=== PATIENT | female | born 1935 | race Caucasian/White ===

== ENCOUNTER 2018-06-10 17:03 | Inpatient (IN) | payer MEDICARE, MEDICAID ==
[~2018-06-10] VITALS: Ht 162.6 cm; Wt 68.0 kg
--- NOTE | 2018-06-10 17:15 | NUR ---
BIB [facility] FROM HOME, SYNCOPAL EPISODE,BLOOD IN HER DIAPER NOTED BY CAREGIVER. NOTED PALEM HYPOSTENSIVE. MD AT BS FOR EVAL- ASSISTED TO CHECK NOTED POSITIVE OCCULT BLOOD. FAMILY MEMBER AT BS. SAFETY AND COMFORT MEASURES PROVIDED. WILL MONITOR,.
[2018-06-10 17:28] LABS: BASOPHILS # (AUTO) 0.1 /CMM (0.0-0.2); BASOPHILS % (AUTO) 0.7 % (0.0-2.0); EOSINOPHILS % (AUTO) 0.7 % (0.0-6.0); HEMATOCRIT 30 % (33-45); HEMOGLOBIN 9.6 g/dL (11.5-14.8); LYMPHOCYTES # (AUTO) 2.5 /CMM (0.8-4.8); LYMPHOCYTES % (AUTO) 20.2 % (20.0-44.0); MEAN CORPUSCULAR HEMOGLOBIN 27 PG (26.0-33.0); MEAN CORPUSCULAR HGB CONC 32 g/dl (31.0-36.0); MEAN CORPUSCULAR VOLUME 84 fL (82-100); MONOCYTES # (AUTO) 0.6 /CMM (0.1-1.30); MONOCYTES % (AUTO) 4.7 % (2.0-12.0); NEUTROPHILS # (AUTO) 9.3 /CMM (1.8-8.9); NEUTROPHILS % (AUTO) 73.7 % (43.0-81.0); PLATELET COUNT (AUTO) 323 /CMM (150-450); RDW COEFFICIENT OF VARIATION 16.2 (11.5-15.0); RED BLOOD CELL COUNT(AUTO) 3.57 MIL/uL (4.0-5.2); WHITE BLOOD COUNT (AUTO) 12.6 K/uL (4.3-11.0)
[2018-06-10] MEDS ORDERED: IV NS 0.9% 1,000 ML BAG IV ONE (17:30)
--- NOTE | 2018-06-10 17:37 | NUR ---
IV ACCESS STARTED. BLOOD DRAWN FOR LABS. MEDICATED ORDERED. XRAY AT BS.
[2018-06-10 17:38] LABS: CALCIUM, SERUM 8.7 mg/dL (8.5-10.1); CARBON DIOXIDE 27 mmol/L (21-32); CHLORIDE 106 mmol/L (98-107); CREATININE 0.6 mg/dL (0.6-1.3); GLUCOSE 130 mg/dL (74-106); POTASSIUM 3.1 mmol/L (3.5-5.1); SODIUM SERUM 140 mmol/L (136-145); UREA NITROGEN, BLOOD 20 mg/dL (7-18)
[2018-06-10 17:42] LABS: INR 1.01 (0.85-1.15)
[2018-06-10 17:44] LABS: ALANINE AMINOTRANSFERASE 12 U/L (12-78); ALBUMIN 2.7 g/dL (3.4-5.0); ALKALINE PHOSPHATASE 112 U/L (46-116); ASPARTATE AMINOTRANSFERASE 11 U/L (15-37); BILIRUBIN,DIRECT 0.1 mg/dL (0.0-0.2); BILIRUBIN,TOTAL 0.4 mg/dL (0.2-1.0); LIPASE 54 U/L (73-393); TOTAL PROTEIN, SERUM 6.4 g/dL (6.4-8.2)
--- NOTE | 2018-06-10 17:45 | NUR ---
BANDAR NURSING BAND ATTACHER AND REQUESTED AN ICU BED FOR THIS PT.
[2018-06-10 17:46] LABS: TROPONIN I < 0.017 ng/mL (0.00-0.056)
--- NOTE | 2018-06-10 17:53 | NUR ---
PT'S SON TO SIGN THE CONSENT FOR BLOOD TRANSFUSION. VERBALIZED UNDERSTANDING OF THE PROCEDURE. ALL QUESTIONS ANSWERED.
[2018-06-10] MEDS ORDERED: LEVE100S PO (18:48)
[2018-06-10] MEDS ORDERED: ESCI10TA PO (18:48)
[2018-06-10] MEDS ORDERED: ESOM40CA PO (18:48)
[2018-06-10] MEDS ORDERED: TEMA7.5C PO (18:48)
[2018-06-10] MEDS ORDERED: LIPA1CAP15 PO (18:48)
[2018-06-10] MEDS ORDERED: DONE23TA3 PO (18:48)
[2018-06-10] MEDS ORDERED: LACT10SO PO (18:48)
[2018-06-10] MEDS ORDERED: LISI2.5T2 PO (18:48)
[2018-06-10] MEDS ORDERED: MECL-102 PO (18:48)
[2018-06-10] MEDS ORDERED: METO25TA6 PO (18:48)
[2018-06-10] MEDS ORDERED: ROSU5TAB12 PO (18:48)
--- NOTE | 2018-06-10 18:48 | NUR ---
CALLED [facility] FOR PANEL CALL AND DR SUH WAS PAGED.
[2018-06-10] MEDS ORDERED: APIX2.5T PO (18:49)
--- NOTE | 2018-06-10 18:59 | NUR ---
PT IS ASSIGNED TO ICU RM#: [id number], DX: RECTAL BLEED, AND ACCEPTING MD: DR SUH.
--- NOTE | 2018-06-10 18:59 | NUR ---
PAGED GI BOTTLING MACHINE OPERATOR CHIP CLEANING NP
[2018-06-10] MEDS ORDERED: MAGNESIUM HYDROXIDE 30 ML UDC PO PRN (19:00)
[2018-06-10] MEDS ORDERED: Z GUARD REMEDY 2 OZ OINT TP PRN (19:00)
[2018-06-10] MEDS ORDERED: ZOLPIDEM TARTRATE 5 MG TABLET PO PRN (19:00)
[2018-06-10] MEDS ORDERED: MAG HYDROX/AL HYDROX/SIMETH 30 ML UDC PO PRN (19:00)
--- NOTE | 2018-06-10 19:24 | NUR ---
REPORT GIVEN TO SY LUIS FOR DENIS.
--- NOTE | 2018-06-10 19:44 | NUR ---
CALLED [facility] [employer] AND REQUESTED A TELE BED FOR THIS PT.
[2018-06-10 20:00] VITALS: BP 116/68
[2018-06-10] MEDS ORDERED: POTASSIUM CHLORIDE 20 MEQ TAB.PRT.SR PO ONE (20:00)
--- NOTE | 2018-06-10 20:02 | NUR ---
NEW ROOM 118-1, DAPHNIE LUIS
--- NOTE | 2018-06-10 20:11 | NUR ---
REPORT GIVEN TO [place]
[2018-06-10 20:30] VITALS: BP 116/68
[2018-06-10] MEDS ORDERED: MECLIZINE HCL 25 MG TABLET PO PRN (21:00)
[2018-06-10] MEDS ORDERED: NA PHOS,M-B/NA PHOS,DI-BA 1 EA ENEMA RC PRN (21:30)
--- NOTE | 2018-06-10 21:49 | NUR ---
rn notes seen by Cristy Farias NP. with instrction not to start Golytly, mag citrate and Enema till AM.
[2018-06-10] MEDS: PANTOPRAZOLE 40 MG VIAL IV SCH (21:57)
[2018-06-10] MEDS: IV NS 0.9% 1,000 ML IV PRN (22:41)
[2018-06-10] MEDS ORDERED: PEG 3350/NA SULF,BICARB,CL/KCL 4,000 ML BOTTLE PO ONE (23:30)
[2018-06-11] VITALS: BP 118/60
[2018-06-11] MEDS ORDERED: MAGNESIUM CITRATE 296 ML BOTTLE PO ONE
[2018-06-11 00:19] LABS: IRON, SERUM 12 ug/dl (50-175); TOTAL IRON BINDING CAPACITY 180 ug/dl (250-450)
[2018-06-11 00:35] LABS: FERRITIN 47 ng/mL (8-388)
[2018-06-11 04:00] VITALS: BP 122/59
[2018-06-11 06:46] LABS: ALANINE AMINOTRANSFERASE 9 U/L (12-78); ALBUMIN 2.3 g/dL (3.4-5.0); ALKALINE PHOSPHATASE 88 U/L (46-116); ASPARTATE AMINOTRANSFERASE 13 U/L (15-37); BILIRUBIN,TOTAL 0.3 mg/dL (0.2-1.0); CALCIUM, SERUM 8.4 mg/dL (8.5-10.1); CARBON DIOXIDE 25 mmol/L (21-32); CHLORIDE 110 mmol/L (98-107); CREATININE 0.5 mg/dL (0.6-1.3); GLUCOSE 102 mg/dL (74-106); SODIUM SERUM 143 mmol/L (136-145); TOTAL PROTEIN, SERUM 5.6 g/dL (6.4-8.2); UREA NITROGEN, BLOOD 21 mg/dL (7-18)
[2018-06-11 07:00] LABS: BASOPHILS % (AUTO) 0.4 % (0.0-2.0); EOSINOPHILS % (AUTO) 0.8 % (0.0-6.0); HEMATOCRIT 25 % (33-45); HEMOGLOBIN 7.5 g/dL (11.5-14.8); LYMPHOCYTES # (AUTO) 1.6 /CMM (0.8-4.8); LYMPHOCYTES % (AUTO) 22.2 % (20.0-44.0); MEAN CORPUSCULAR HEMOGLOBIN 26 PG (26.0-33.0); MEAN CORPUSCULAR HGB CONC 30 g/dl (31.0-36.0); MEAN CORPUSCULAR VOLUME 87 fL (82-100); MONOCYTES # (AUTO) 0.4 /CMM (0.1-1.30); MONOCYTES % (AUTO) 5.1 % (2.0-12.0); NEUTROPHILS # (AUTO) 5.2 /CMM (1.8-8.9); NEUTROPHILS % (AUTO) 71.5 % (43.0-81.0); PLATELET COUNT (AUTO) 248 /CMM (150-450); RED BLOOD CELL COUNT(AUTO) 2.85 MIL/uL (4.0-5.2); WHITE BLOOD COUNT (AUTO) 7.2 K/uL (4.3-11.0)
--- NOTE | 2018-06-11 07:30 | NUR ---
RECEIVED PT. THIS AM ALERT AND ORIENTED X3,WEAK,COOPERATIVE,VS STABLE.IV INFUSING.
[2018-06-11 07:39] LABS: CHOLESTEROL 78 mg/dL (<200); HDL CHOLESTEROL 33 mg/dL (40-60); LDL 41 mg/dL (0-99); TRIGLYCERIDES 64 mg/dL (30-150)
[2018-06-11 08:00] VITALS: BP 146/66
[2018-06-11] MEDS ORDERED: Medication Not On Formulary EA (Lipase/Protease/Amylase (Creon Dr 36,000 Units Capsule) PO SCH (08:00)
[2018-06-11] MEDS: PANTOPRAZOLE 40 MG VIAL IV SCH (09:48)
[2018-06-11] MEDS: LISINOPRIL (5MG) 5 MG TABLET PO SCH (09:49)
[2018-06-11] MEDS: ESCITALOPRAM OXALATE (10 MG) 10 MG TABLET PO SCH (09:49)
[2018-06-11] MEDS: METOPROLOL TARTRATE 25 MG TABLET PO SCH (09:49)
--- NOTE | 2018-06-11 10:00 | NUR ---
[facility] GRANDSON IN TO VISIT,HANNAH MORA.CONSENT SIGNED FOR NM GI SCAN OVER PHONE WITH SON.
[2018-06-11] MEDS: LIPASE/PROTEASE/AMYLASE 1 EACH CAPSULE.DR PO SCH ×3 (10:18→18:29)
[2018-06-11] MEDS: IV NS 0.9% 1,000 ML IV PRN (10:40)
[2018-06-11] MEDS ORDERED: HEPARIN-LOCK FLUSH PORCINE PF 100 UNITS/1 ML (10 ML)DISP.SYRIN IV ONE (11:46)
[2018-06-11 12:00] VITALS: BP 159/78
--- NOTE | 2018-06-11 12:30 | NUR ---
PROGRESS OF GO-LYTELY ADM. STOPPED PT. OFF FLOOR.
--- NOTE | 2018-06-11 13:00 | NUR ---
COLONOSCOPY CONSENT SIGNED.
[2018-06-11] MEDS: SOD FERRIC GLUC 125 MG in IV NS 0.9% 100 ML IV SCH (14:42)
[2018-06-11 16:00] VITALS: BP 154/69
[2018-06-11] MEDS: ONDANSETRON HCL/PF 4 MG/2 ML VIAL IVP PRN ×2 (16:47→23:02)
--- NOTE | 2018-06-11 16:47 | NUR ---
MED. FOR NAUSEA GO-LYTELY IN PROGRESS.PT. OFF FLOOR FROM 1115 TO 1445 FOR GI SCAN.
--- NOTE | 2018-06-11 18:00 | NUR ---
HAD SEVERAL STOOLS DARK BROWN IN COLOR.NO ACTIVE BLEEDING NOTED.
[2018-06-11 20:00] VITALS: BP 156/84
[2018-06-11] MEDS: ATORVASTATIN 10 MG TABLET PO SCH (22:06)
[2018-06-11] MEDS: ACETAMINOPHEN 325 MG TABLET PO PRN (23:01)
[2018-06-12] VITALS (9 sets, daily range): BP systolic 114–180; BP diastolic 68–95
[2018-06-12] MEDS: IV NS 0.9% 1,000 ML IV PRN (03:33)
--- NOTE | 2018-06-12 06:28 | NUR ---
RN NOTE PATIENT REMAINED NPO AFTER MIDNIGHT, WAS ABLE TO COMPLETE GOLYTELY PRIOR TO 0000, CLEAR BM, NO PAIN OR DISCOMFORT NOTED, TURNED AND REPOSITION Q 2 HOURS, ALL SAFETY MEASURES TAKEN, WILL ENDORSE TO AM SHIFT TO CONTINUE CARE
[2018-06-12 06:58] LABS: BASOPHILS # (AUTO) 0.1 /CMM (0.0-0.2); BASOPHILS % (AUTO) 0.8 % (0.0-2.0); EOSINOPHILS % (AUTO) 0.5 % (0.0-6.0); HEMATOCRIT 25 % (33-45); HEMOGLOBIN 7.7 g/dL (11.5-14.8); LYMPHOCYTES # (AUTO) 1.7 /CMM (0.8-4.8); LYMPHOCYTES % (AUTO) 21.8 % (20.0-44.0); MEAN CORPUSCULAR HEMOGLOBIN 27 PG (26.0-33.0); MEAN CORPUSCULAR HGB CONC 31 g/dl (31.0-36.0); MEAN CORPUSCULAR VOLUME 87 fL (82-100); MONOCYTES # (AUTO) 0.4 /CMM (0.1-1.30); MONOCYTES % (AUTO) 5.1 % (2.0-12.0); NEUTROPHILS # (AUTO) 5.7 /CMM (1.8-8.9); NEUTROPHILS % (AUTO) 71.8 % (43.0-81.0); PLATELET COUNT (AUTO) 256 /CMM (150-450); RDW COEFFICIENT OF VARIATION 17.8 (11.5-15.0); RED BLOOD CELL COUNT(AUTO) 2.84 MIL/uL (4.0-5.2); WHITE BLOOD COUNT (AUTO) 7.9 K/uL (4.3-11.0)
[2018-06-12 07:03] LABS: ALANINE AMINOTRANSFERASE 8 U/L (12-78); ALBUMIN 2.5 g/dL (3.4-5.0); ALKALINE PHOSPHATASE 100 U/L (46-116); ASPARTATE AMINOTRANSFERASE 16 U/L (15-37); BILIRUBIN,TOTAL 0.3 mg/dL (0.2-1.0); CARBON DIOXIDE 26 mmol/L (21-32); CHLORIDE 108 mmol/L (98-107); CREATININE 0.4 mg/dL (0.6-1.3); GLUCOSE 79 mg/dL (74-106); POTASSIUM 3.4 mmol/L (3.5-5.1); SODIUM SERUM 142 mmol/L (136-145); UREA NITROGEN, BLOOD 12 mg/dL (7-18)
--- NOTE | 2018-06-12 07:35 | NUR ---
RN NOTE RECEIVED PATIENT AWAKE ALERT AND ORIENTED X2-3, SHE IS ABLE TO MAKE THINGS KNOWN IN HER [place] LANGUAGE. BREATHING EVEN AND UNLABORED WITH NO DISTRESS NOTED. PATIENT REMAINS NPO SECONDARY TO COLONOSCOPY PROCEDURE TODAY. CONSENT AND CHECKLIST DONE. ALL SAFETY MEASURES DONE. BED LOW AND LOCKED POSITION. WILL CONTINUE TO MONITOR.
[2018-06-12] MEDS: LIPASE/PROTEASE/AMYLASE 1 EACH CAPSULE.DR PO SCH ×3 (08:00→17:14)
[2018-06-12] MEDS: PANTOPRAZOLE 40 MG VIAL IV SCH (08:31)
[2018-06-12] MEDS: ESCITALOPRAM OXALATE (10 MG) 10 MG TABLET PO SCH (08:31)
--- NOTE | 2018-06-12 08:45 | NUR ---
OPERATOR COATING FURNACE NOTES PATIENT RECEIVED RESTING INSIDE ROOM. AWAKE, ALERT AND ORIENTED, VERBALLY RESPONSIVE AND RESPONDS TO VERBAL AND TACTILE STIMULI. BREATHING EVEN AND UNLABORED. NO SOB OR ACUTE DISTRESS NOTED. NO CHANGES IN LOC NOTED AT THIS TIME. PATIENT CALM AND RELAXED. PATIENT FOR COLONOSCOPY AT NOON. NPO POST MIDNIGHT. PATIENT AWARE OF PROCEDURE. IV INTACT AND PATENT. NO BLEEDING NOTED ON SITE. WILL CONTINUE TO MONITOR. BED LOCKED AND IN LOW POSITION. BILATERAL UPPER SIDE RAILS UP AND LOCKED. CALL LIGHT WITHIN EASY REACH
--- NOTE | 2018-06-12 08:45 | NUR ---
RN NOTE ENDORSED REPORT TO HONG LUIS TO CONTINUE TO MONITOR CONTINUITY OF CARE.
[2018-06-12] MEDS: METOPROLOL TARTRATE 25 MG TABLET PO SCH (08:50)
[2018-06-12] MEDS: LISINOPRIL (5MG) 5 MG TABLET PO SCH (08:51)
[2018-06-12] MEDS: POTASSIUM CL. PREMIX PERIPHER. 50 ML IV SCH ×4 (09:17→14:28)
--- NOTE | 2018-06-12 12:45 | NUR ---
GM VIDEO NOTES PATIENT RETURNED TO UNIT FROM PACU. POST COLONOSCOPY WITH DR. DORADO. WITH NEW ORDERS FROM DR. DORADO TO RESUME PREVIOUS DIET TOLERATED. CONTINUE IVF OF NS AT 75CC/HR. ORDERS NOTED AND CARRIED OUT. SONMARITZA, AT BEDSIDE, VERIFIED THAT PATIENT WAS PREVIOUSLY HAVING SOFT DIET PRIOR TO GOING TO HOSPITAL. PATIENT PLACED ON FULL LIQUID DIET AT THIS TIME, WILL ADVANCE PATIENT TOLERATED. WILL CONTINUE TO MONITOR.
[2018-06-12] MEDS: SOD FERRIC GLUC 125 MG in IV NS 0.9% 100 ML IV SCH (15:34)
[2018-06-12] MEDS: ACETAMINOPHEN 325 MG TABLET PO PRN (16:15)
--- NOTE | 2018-06-12 18:03 | NUR ---
FORESTRY CREW CHIEF NOTES PATIENT FOR BLOOD TRANSFUSION WITH 1PRBC, ORDERED BY DR. SUH. CONSENT SIGNED AND VERIFIED. BLOOD OBTAINED FROM BLOOD BANK. VERIFIED WITH ASHKAN LUIS. BLOOD TRANSFUSION INITIATED. WILL CONTINUE TO MONITOR
--- NOTE | 2018-06-12 18:33 | NUR ---
SENIOR CLINICAL DATA MANAGER NOTES PATIENT RESTING INSIDE ROOM. AWAKE, ALERT AND ORIENTED. VERBALLY RESPONSIVE AND RESPONDS TO VERBAL AND TACTILE STIMULI. BREATHING EVEN AND UNLABORED. NO SOB OR ACUTE DISTRESS NOTED. NO CHANGES IN LOC NOTED. PATIENT CALM AND RELAXED. ONGOING BLOOD TRANSFUSION. NO REACTION NOTED AT THIS TIME. IV INTACT AND PATENT. TO CALL TRANSPORTATION AFTER BLOOD TRANSFUSION FOR DISCHARGE HOME. SON AT BEDSIDE AWARE. WILL ENDORSE TO INCOMING SHIFT FOR DENIS. BED LOCKED AND IN LOW POSITION. BILATERAL UPPER SIDE RAILS UP ADN LOCKED. CALL LIGHT WITHIN EASY REACH
--- NOTE | 2018-06-12 19:28 | NUR ---
RN TEL INITIAL NOTES RECEIVED PT IN BED, AOX2-3, ON NC@2L/P, WELL JACQUES, CONT ON 1 UNIT PRBS, JACQUES WELL, NO A/R NOTED, V/S STABLE, SON BY BED SIDE. ENDORSED PT FOR DC HOME ETA 9PM SON AWARE, ALL PT NEEDS MET, KEPT CLEAN AND DRY, WILL F/U WITH THE DC PLANNING.
--- NOTE | 2018-06-12 21:00 | NUR ---
CALLED [facility]FFA[facility] SPECIALIST PT EMT WATERPROOFING SUPERVISOR FOR DC HOME, AFTER BLOOD TRANSFUSION PT BP 180/95 88, OBTAINED ORDER FOR HYDRALAZINE 25MG PO TAB.
[2018-06-12] MEDS ORDERED: hydrALAZINE HCL 10 MG TABLET PO ONE (22:00)
[2018-06-12] MEDS ORDERED: hydrALAZINE HCL 25 MG TABLET PO SCH (22:00)
[2018-06-12] MEDS ORDERED: hydrALAZINE HCL 25 MG TABLET PO ONE (22:00)
[2018-06-12] MEDS: ATORVASTATIN 10 MG TABLET PO SCH (22:08)
--- NOTE | 2018-06-12 22:30 | NUR ---
PT BP RECHECKED AFTER 15MINUTES DECREASE TO 160/89 79 PT A LITTLE ANXIOUS, BUT OK TO DC TO [facility], SON WITH PT ALL IV ACCESS DC, DRESSING APPLIED WITH PRESSURE. EMT OK TO TRANSFER, SON WITH ALL BELONGINGS. BLOOD TRANSFUSION COMPLETED NO A/R NOTED AFEBRILE, TOLD SON TO TELL TENNIS INSTRUCTOR TO MONITOR.
== END 2018-06-12 22:30 | disposition home or self-care (01) | DRG 378 ==
LOC: ER 17:09 → ICU 19:29 → TELE1 20:04
PROVIDERS: ADMIT Internal Medicine; ATTEND Internal Medicine
PROC: 0DBK8ZX Excision of Ascending Colon, Via Natural or Artificial Opening Endoscopic, Diagnostic (ICD-10-PCS; 2018-06-12)
PROC: 0DBL8ZX Excision of Transverse Colon, Via Natural or Artificial Opening Endoscopic, Diagnostic (ICD-10-PCS; 2018-06-12)
PROC: 30233N1 Transfusion of Nonautologous Red Blood Cells into Peripheral Vein, Percutaneous Approach (ICD-10-PCS; principal; 2018-06-12 12:00)
DX: K57.31 Diverticulosis of large intestine without perforation or abscess with bleeding (principal); D62 Acute posthemorrhagic anemia; D68.59 Other primary thrombophilia; E87.6 Hypokalemia; Z79.01 Long term (current) use of anticoagulants; G40.909 Epilepsy, unspecified, not intractable, without status epilepticus; I48.91 Unspecified atrial fibrillation; D72.828 Other elevated white blood cell count; Z86.73 Personal history of transient ischemic attack (TIA), and cerebral infarction without residual deficits; E78.5 Hyperlipidemia, unspecified; I10 Essential (primary) hypertension; D17.79 Benign lipomatous neoplasm of other sites; E61.1 Iron deficiency; E86.0 Dehydration; D12.2 Benign neoplasm of ascending colon
CPT/HCPCS: 36415; 71045-TC; 80048-TC; 80053-TC; 80061-TC; 80076-TC; 82728-TC; 83540-TC; 83690-TC; 83735-TC; 84100-TC; 84484-TC; 85025-TC; 85730-TC; 86850-TC; 86921-TC; 87081-TC; 88305-TC; A4606; A9560; C9113; J1642; J2405; J2916; J3480; J3490; J7030; J7050; P9016-BL; Z7610